=== PATIENT | male | born 1985 | race Caucasian/White ===

== ENCOUNTER 2023-03-11 18:24 | Emergency (ER) | payer BC ==
[2023-03-11] MEDS: Lidocaine 1% 5 ML VIAL INJECT ONE (18:41)
[2023-03-11] MEDS: Bacitracin/Neomycin/Polymyxin B Oint 0.9 GM U/D Packet TOP ONE (19:24)
[2023-03-11] MEDS: Diphtheria,Pertussis(Acell),Tetanus Vaccine 0.5 ML Syringe IM ONE (19:25)
== END 2023-03-11 19:35 | disposition home or self-care (01) ==
LOC: CC.ED 18:24
DX: S81.012A Laceration without foreign body, left knee, initial encounter (principal); W23.0XXA Caught, crushed, jammed, or pinched between moving objects, initial encounter
CPT/HCPCS: 12004; 90471; 90715; 99282-25; 99283; A9270-GY; J3490